=== PATIENT | female | born 2000 | race Caucasian/White ===

== ENCOUNTER 2020-09-01 15:00 | Outpatient (RCR) | payer OTHER, SELFPAY | END 2020-09-11 23:55 | disposition home or self-care (01) | LOC: HO.PAOS 15:00 | PROVIDERS: Visit Provider Counselor Mental Health | DX: F91.3 Oppositional defiant disorder (principal); F60.3 Borderline personality disorder | CPT/HCPCS: 90832; 90834 ==

== ENCOUNTER 2021-04-27 19:41 | Emergency (ER) | payer OTHER, SELFPAY ==
[2021-04-27 19:47] VITALS: BP 127/69; PULSE 97; RESP 15; TEMP 37; O2SAT 100; BMI 18.3
--- NOTE | 2021-04-27 19:57 | ED_ITS ---
HPI - Psych General Chief Complaint: Psychiatric Symptoms Stated Complaint: crisis Time Seen by Provider: 04/27/21 19:50 Source: patient and EMS Mode of arrival: EMS Limitations: no limitations History of Present Illness HPI Narrative: 20 y/o female with history of anxiety, previous cutting behaviors who presents to the ER from work via EMS with anxiety attack and self-inflicted cuts to her right thigh that she gave herself with a gill box operator in the bathroom at work. She has increased stress at work and does better when I work with a partner. Her housing property manager told her she needed to get a doctor's note stating this. She lied to her manger and told her she had an appointment today. She had an anxiety attack, went into the bathroom and cut the lateral portion of her right thigh superficially with a gill box operator. She reports she wanted to feel pain in the moment. She denies suicide attempt. complaint: anxiety Onset (ago): hour(s) Duration: intermittent History of same: Yes Relieving factors: therapy Exacerbating factors: other (stress at work) Context: significant life stressor Associated symptoms: denies other symptoms Treatments prior to arrival: none If self harm: self-inflicted trauma Related Data Previous Rx's Medication Instructions Recorded hydroxyzine HCl 25 mg PO TID PRN #10 tab 04/27/21 Allergies Allergy/AdvReac Type Severity Reaction Status Date / Time No Known Allergies Allergy Unverified 06/19/20 16:55 [No Known Allergies*] Review of Systems Review of Systems: Constitutional: No Fever, No Chills ENT/Mouth: No sore throat, No Rhinorrhea, No Swallowing Difficulty Cardiovascular: No Chest Pain, No SOB Respiratory: No Cough, No Sputum, No Wheezing, No dyspnea Gastrointestinal: No Nausea, No Vomiting, No Diarrhea, No abdominal Pain Musculoskeletal: No joint pain, No Myalgias Skin: + Skin Lesions, No rash Neuro: No Weakness, No Numbness, No Dizziness, No Headache Psych: + Anxiety/Panic, No Depression, No VH, No AH, No SI Heme/Lymph: No Bruising, No Lymphadenopathy PMFSH Past Medical History Medical History (Updated 04/27/21 @ 21:49 by ESTIVEN Seth) Anxiety Social History Social History Advance Directives: No Advance Directives Information Provided: Yes Healthcare Proxy: No Guardian: No Patient : No Physical Exam Vital Signs: Vital Signs: Last Vital Signs Temp 98.6 F 04/27/21 19:47 Pulse 97 04/27/21 19:47 Resp 15 04/27/21 19:47 BP 127/69 04/27/21 19:47 Pulse Ox 100 04/27/21 19:47 Body Mass Index 18.3 Appearance: Alert. Oriented X3. No acute distress. Eyes: Pupils equal, round and reactive to light. ENT: Pharynx normal. Neck: Normal inspection. Neck supple. CVS: Normal heart rate and rhythm. Pulses normal. Respiratory: No respiratory distress. Breath sounds normal. Abdomen: Soft and nontender. +BS x4 Skin: Skin warm and dry. Normal skin color. Normal skin turgor. No rashes. Extremities: No lower extremity edema. Right lateral thigh with multiple superficial abrasions about 8 cm in length, no active bleeding, very superficial Neuro: Oriented X 3. No motor deficit. No sensory deficit. Course Course Course Narrative: 20 y/o female with history of anxiety and cutting who presents with panic attack and superficial self-inflicted abrasions to right thigh. Anxiety worse without seeing her therapist. CARE team involved who is reaching out to family and her therapist. Reevaluation(s) Reevaluation #1: Utox negative. Physician observation started at 9pm. Patient placed in physician observation because patient is awaiting CARE evaluation for the possible need of inpatient psych admission. At the time observation was started patient's vital signs were stable. Patient is alert and oriented. Neuro exam is non-focal. CV: RRR and lungs are clear. Will continue to monitor. Reevaluation #2: Patient seen by CARE team - therapist contacted and patient will follow up with them. She is stable for d/c home with trial of PRN hydroxyzine. Patient is not suicidal or homicidal. [facility] - Psych Lab Data Labs: Lab Results 04/27/21 04/27/21 04/27/21 Range/Units 20:07 20:07 20:07 Urine Color YELLOW Urine Appearance CLEAR Urine pH 6.0 (5.0-8.0) Ur Specific Odonnell 1.010 (1.005-1.025) Urine Protein NEG (NEG-TRACE) MG/DL Urine Glucose (UA) NEG (NEG) MG/DL Urine Ketones NEG (NEG) MG/DL Urine Blood 2+ H (NEG) Urine Nitrite NEG (NEG) Ur Leukocyte Esterase NEG (NEG) Urine RBC 0-2 (0) /HPF Urine WBC 0-2 (0-4) /HPF Ur Squamous Epith Cells TRACE /LPF Urine Bacteria 2+ /LPF Urine Mucus TRACE /LPF Urine Opiates Screen Not Detected (Not Detect) Ur Barbiturates Screen Not Detected (Not Detect) Ur Phencyclidine Scrn Not Detected (Not Detect) Ur Amphetamines Screen Not Detected (Not Detect) U Benzodiazepines Scrn Not Detected (Not Detect) Urine Cocaine Screen Not Detected (Not Detect) U Marijuana (THC) Screen Not Detected (Not Detect) COVID-19 (TOYA) Negative (Negative) COVID-19 Clin Com See Note Critical Care Time Critical Care Time Critical Care Time: No Discharge Plan Discharge Clinical Impression: Anxiety Patient Disposition: Home, Self-Care Instructions: Anxiety (ED) Additional Instructions: Follow up with your Therapist FILIPE. Take the prescribed medication as directed. If you develop new or worsening symptoms call 911 or come back to the ER for further evaluation. Prescriptions: New hydroxyzine HCl 25 mg tablet 25 mg PO TID PRN (Reason: anxiety) Qty: 10 RF: 0 Interventions: ED Discharge Assessment Last Done: 04/27/21 22:25 Discharge Date/Time: 04/27/21 22:26
[2021-04-27 20:25] LABS: Glucose Urine UA NEG (NEG); Leukocyte Esterase Urine NEG (NEG); Nitrite Urine NEG (NEG); Urine Blood 2+ (NEG); Urine Ketones NEG (NEG); Urine Protein NEG (NEG-TRACE)
[2021-04-27 20:30] LABS: COVID-19 Test Negative (Negative)
[2021-04-27 20:31] LABS: Appearance Urine CLEAR; Color Urine YELLOW
[2021-04-27 20:37] LABS: Amphetamine Screen Urine Not Detected (Not Detect); Barbiturates, Urine Not Detected (Not Detect); Benzodiazepines Screen Urine Not Detected (Not Detect); Cannabinoid Screen Urine Not Detected (Not Detect); Cocaine Screen Urine Not Detected (Not Detect); Opiate Screen Urine Not Detected (Not Detect); Phencyclidine Screen Urine Not Detected (Not Detect)
[2021-04-27 20:51] LABS: RBC Urine 0-2 /HPF (0); Squamous Epithelial Cell Urine TRACE /LPF; WBC Urine 0-2 /HPF (0-4)
[2021-04-27 20:52] LABS: Bacteria Urine 2+ /LPF; Mucus Urine TRACE /LPF
== END 2021-04-27 22:26 | disposition home or self-care (01) ==
PROVIDERS: Physician Assistant; Emergency Provider Emergency Medicine; PCP Pediatrics
DX: F41.9 Anxiety disorder, unspecified (principal); S70.311A Abrasion, right thigh, initial encounter; X78.8XXA Intentional self-harm by other sharp object, initial encounter; Y93.9 Activity, unspecified; Y92.9 Unspecified place or not applicable; Y99.9 Unspecified external cause status; Z20.822 Contact with and (suspected) exposure to COVID-19; Z56.6 Other physical and mental strain related to work; Z91.5 Personal history of self-harm
CPT/HCPCS: 36415; 80307; 81001; 87635; 99282; 99283

== ENCOUNTER 2021-12-17 21:09 | Emergency (ER) | payer OTHER, SELFPAY | END 2021-12-17 22:21 | disposition left against medical advice (07) | LOC: HO.ED 22:19 | PROVIDERS: Emergency Provider Emergency Medicine | DX: R30.0 Dysuria (principal) ==

== ENCOUNTER 2023-06-01 02:54 | Emergency (ER) | payer OTHER, SELFPAY ==
[2023-06-01 03:03] VITALS: BP 132/74; PULSE 142; RESP 23; TEMP 37; O2SAT 96; BMI 27.0
[2023-06-01 03:42] VITALS: BP 132/74; PULSE 110; RESP 18; TEMP 37; O2SAT 94
[2023-06-01 04:12] LABS: Amphetamine Screen Urine Not Detected (Not Detect); Barbiturates, Urine Not Detected (Not Detect); Benzodiazepines Screen Urine Not Detected (Not Detect); Cannabinoid Screen Urine Not Detected (Not Detect); Cocaine Screen Urine POSITIVE (Not Detect); Fentanyl, urine Not Detected (Not Detect); Opiate Screen Urine Not Detected (Not Detect); Phencyclidine Screen Urine Not Detected (Not Detect)
[2023-06-01 04:17] LABS: Ethanol 229 mg/dL
--- NOTE | 2023-06-01 04:31 | ED.ALCOHOL ---
HPI - Alcohol General Chief Complaint: ETOH/Substance Use Stated Complaint: ETOH Time Seen by Provider: 06/01/23 04:20 Source: EMS and police Mode of arrival: EMS Limitations: other History of Present Illness HPI narrative: Patient comes to the emergency room [facility] ambulance intoxicated. Police department is present. They state that the patient called from a bar in [place] asking for a ride home. They did take her her home. Then, P delays department states that after dropping her off, patient called again, patient screaming, admits to using alcohol and cocaine. Patient brought to the emergency room. Patient denies SI or HI, patient yelling, stating that she wants her that to pick her up. Patient is very intoxicated Related Data Previous Rx's Medication Instructions Recorded hydroxyzine HCl 25 mg tablet 25 mg PO TID PRN anxiety #10 tabs 04/27/21 Allergies Allergy/AdvReac Type Severity Reaction Status Date / Time No Known Allergies Allergy Unverified 06/19/20 16:55 [No Known Allergies*] Review of Systems Review of Systems: Yes Other (Patient is too intoxicated) COUNT INCLUDES THE [facility] Past Medical History Medical History Anxiety Social History Social History Smoked in Last 30 Days: No Substance Use Type: Crack/Cocaine Physical Exam ED Vital Signs: Vital Signs - 24 hr 06/01/23 03:03 06/01/23 03:42 Temperature 98.6 F 98.6 F Pulse Rate 142 H 110 H Respiratory Rate 23 H 18 Blood Pressure 132/74 132/74 Pulse Oximetry 96 94 Oxygen Delivery Method Room Air Room Air BMI result Body Mass Index 27.0 Const Other: Appearance: Alert. Intoxicated Eyes: Pupils equal, round and reactive to light. ENT: Pharynx normal. Neck: Normal inspection. Neck supple. No lymph nodes noted. No crepitus CVS: Normal heart rate and rhythm. Pulses normal. Normal S1 and S2 Respiratory: No respiratory distress. Breath sounds normal. No Wheezing. No rales Abdomen: Soft and nontender. No rigidity. No distention. Skin: Skin warm and dry. Normal skin color. Normal skin turgor. Extremities: No lower extremity edema. No Lacerations. No Rash Neuro: Intoxicated No motor deficit. No sensory deficit. Moving all extremities. No slurred speech. CN 2 through 12 grossly intact Psych: Agitated, anxious Course Course Course Narrative: -patient is very intoxicated -patient eventually fell asleep, vitals stable -plan: Metabolize to freedom and discharged home. Medical Decision Making Lab Data Labs: Lab Results 06/01/23 06/01/23 Range/Units 03:51 03:55 Urine Opiates Screen Not Detected (Not Detect) Urine Fentanyl Screen Not Detected (Not Detect) Ur Barbiturates Screen Not Detected (Not Detect) Ur Phencyclidine Scrn Not Detected (Not Detect) Ur Amphetamines Screen Not Detected (Not Detect) U Benzodiazepines Scrn Not Detected (Not Detect) Urine Cocaine Screen POSITIVE H (Not Detect) U Marijuana (THC) Screen Not Detected (Not Detect) Ethyl Alcohol 229 mg/dL Discharge Plan Discharge Clinical Impression: Alcoholic intoxication Patient Disposition: Still a Patient Prescriptions: No Action hydroxyzine HCl 25 mg tablet 25 mg PO TID PRN (Reason: anxiety) Qty: 10 0RF
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
[2023-06-01 06:26] VITALS: BP 100/56; PULSE 94; RESP 15; O2SAT 99
[2023-06-01 09:07] VITALS: BP 102/56; PULSE 98; RESP 18; O2SAT 98
[2023-06-01 10:34] VITALS: BP 93/57; PULSE 98; RESP 18; TEMP 528.3; TEMP 983; O2SAT 95
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
== END 2023-06-01 12:16 | disposition home or self-care (01) ==
PROVIDERS: Emergency Provider Emergency Medicine
DX: F10.220 Alcohol dependence with intoxication, uncomplicated (principal); Y90.7 Blood alcohol level of 200-239 mg/100 ml; F41.9 Anxiety disorder, unspecified; Z79.899 Other long term (current) drug therapy
CPT/HCPCS: 36415; 80307; 99284

== ENCOUNTER 2023-10-23 22:25 | Emergency (ER) | payer OTHER, SELFPAY ==
[2023-10-23 23:13] VITALS: BP 125/68; PULSE 94; RESP 18; TEMP 36.5; O2SAT 96; BMI 26.8
[2023-10-23 23:51] VITALS: BP 118/77; PULSE 98; RESP 17; TEMP 36.6; O2SAT 97
--- NOTE | 2023-10-24 00:10 | ED.GENADULT ---
[facility] - General Adult General Chief complaint: General Medical Stated complaint: Nose bleeding today Time Seen by Provider: 10/23/23 23:58 Source: patient Mode of arrival: ambulatory History of Present Illness HPI narrative: 23-year-old female not on any chronic anticoagulation presents with noticing that she had a bloody nose this morning when she awoke from sleep and states that throughout the day she is noticed blood on the toilet paper when she has clean her nose. Related Data Previous Rx's Medication Instructions Recorded hydroxyzine HCl 25 mg tablet 25 mg PO TID PRN anxiety #10 tabs 04/27/21 Allergies Allergy/AdvReac Type Severity Reaction Status Date / Time No Known Allergies Allergy Unverified 06/19/20 16:55 [No Known Allergies*] Review of Systems Review of Systems: Pertinent positives and negatives as stated in [facility] Past Medical History Source: nursing notes reviewed Onset Date is defined in the Problem List Problems that require an onset date and time if occurred within 24 hrs of arrival to the ED Aortic Dissection and Rupture; Neurologic impairment; Cardiopulmonary Arrest; Endotracheal Intubation; Insertion or Replacement of Mechanical Circulatory Assist Device Medical History Anxiety Social History Social History Substance Use Type: Crack/Cocaine Advance Directives: No Advance Directives Information Provided: Yes Physical Exam ED Vital Signs: Vital Signs - 24 hr 10/23/23 23:13 10/23/23 23:51 Temperature 97.7 F 97.8 F Pulse Rate 94 98 Respiratory Rate 18 17 Blood Pressure 125/68 118/77 Pulse Oximetry 96 97 Oxygen Delivery Method Room Air Room Air BMI result Body Mass Index 26.8 VITAL SIGNS: Reviewed. GENERAL: Well developed, well nourished, in no acute distress. HEAD: Normocephalic/atraumatic EYES: PERRLA, EOMI EARS: Ext canals without abnormality NOSE: Nares patent bilateral, no obvious bleeding noted, no lesions noted OROPHARYNX: no oral lesions noted, posterior pharynx clear NECK: Supple, no adenopathy LUNGS: Normal breath sounds. No adventitious sounds or accessory muscle use. SpO2<97> CARDIOVASCULAR: Regular rate and rhythm without noted murmurs ABDOMEN: Soft, non-tender, non-distended with bowel sounds. MUSCULOSKELETAL: No tenderness, deformities, or effusions noted on gross inspection. EXTREMITIES: No cyanosis, clubbing or edema. SKIN: Inspection of the skin reveals no rashes NEUROLOGIC: Alert and oriented x 4. Strength and sensation to light touch were grossly intact x 4. Medical Decision Making Medical Decision Making MDM Narrative: 23-year-old female with history and clinical presentation consistent with atraumatic epistaxis likely secondary to current weather conditions and dryness, no obvious bleeding at this time with patent nares. She is otherwise discharged with instructions on how to avoid this in the future. Differential Diagnosis Differential Diagnoses: The differential diagnosis associated with the presentation includes Please see the discussion above Admission/Observation Consideration of admission/observation: Escalation of care including admission/observation considered Please see the discussion above Discharge Plan Discharge Clinical Impression: Epistaxis Patient Disposition: Home, Self-Care Instructions: Nosebleed (ED) Additional Instructions: 1. Recommend [id number] saline spray, 1 brand is called ocean spray, apply to nasal passages 3 to 4 times a day to help maintain moist membranes. 2. Recommend bedside cool mist humidifier for additional moisture control. 3. Do not put anything up your nose to include fingers. Return to the ER for any worsening symptoms. Prescriptions: No Action hydroxyzine HCl 25 mg tablet 25 mg PO TID PRN (Reason: anxiety) Qty: 10 0RF
== END 2023-10-24 00:23 | disposition home or self-care (01) ==
PROVIDERS: Emergency Provider Student in an Organized Health Care Education/Training Program
DX: R04.0 Epistaxis (principal)
CPT/HCPCS: 99282; 99284

== ENCOUNTER 2025-04-26 17:14 | Emergency (ER) | payer MEDICAID, SELFPAY ==
--- NOTE | ~2025-04-26 | XR_ITS ---
CLINICAL HISTORY: trauma 5 view left knee Comparison: None provided Findings: No fractures or dislocations. No joint effusion. No radiopaque foreign body. IMPRESSION: 1. No acute findings. This document has been electronically signed by: Jerry Jansen MD on 04/26/2025 18:12:28
[2025-04-26 17:29] VITALS: BP 116/69; PULSE 105; RESP 17; TEMP 36.2; O2SAT 96; BMI 26.3
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
[2025-04-26 18:41] VITALS: BP 116/69; PULSE 105; RESP 17; TEMP 36.2; O2SAT 96
--- OUTSIDE RECORDS SUMMARY | 2025-04-26 18:41 | XMS_ITS | Clinical Summary ---
Author Organization [facility] Address [address] [place] [id number] Phone Care Team Providers Care Airport Shuttle Driver Name Role Phone Javierfavio Maribell ROWAN Primary Care Provider [phone] Allergies Active Allergy Reactions Criticality Noted Date Comments Amoxicillin 09/04/2021 Hives on fingers Medications buPROPion XL (Wellbutrin XL) 150 MG 24 hr tabletIndication s:Depression, unspecified depression type Take 1 tablet (150 mg total) by mouth daily. 90 tablet 05/20/2023 Active hydrOXYzine 25 MG tabletIndication s:Anxiety disorder, unspecified type Take 1 tablet (25 mg total) by mouth every evening. 30 tablet 1 05/31/2023 Active Active Problems Problem Noted Date Diagnosed Date Chronic midline low back pain without sciatica 0 05/31/2023 Assessment & Plan (05/31/2023 1:20 PM EDT): Concern for persistent lower back discomfort. No radicular pain. Will obtain x- ray to check for a bone issue of the spine. If no concerns raised then would refer to physical therapy to help with this. 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 She does not want to take pillls. She wants the implant. We will refer her to obgyn. Anxiety disorder 05/25/2021 Assessment & Plan (05/31/2023 1:17 PM EDT): Reinforced importance of taking bupropion XL 150mg daily and then will add hydroxyzine in the evening to help with anxiety symptoms currently. Follow up in 2-3 weeks. Assessment & Plan (10/25/2022 2:57 PM EST): Overall doing well No SI risk Speaking to therapist weekly I do recommend she resume medication Sertraline refilled Will provide assistance to aid in transportation Self-injurious behavior 05/25/2021 Menorrhagia with irregular cycle 02/27/2019 Overview (02/27/2019): 01/2019 - Long periods of vaginal bleeding. Implanon placed 2-3 years ago. Assessment & Plan (02/27/2019 2:55 PM EDT): Recommended going back to clinic that placed implanon. Otherwise if unable to return to that clinic then call new Compliance Consultant office to evaluate and likely take out implanon. Seasonal allergic rhinitis 02/27/2019 Assessment & Plan (02/16/2021 1:29 PM EDT): Differential includes AOM, pneumonia, coronavirus, viral URI, allergy rhinitis, strep throat. [facility] strep swab negative. No signs on exam of AOM or pneumonia. COVID testing ([facility]) was negative. Most likely diagnosis is allergic rhinitis. Discussed supportive therapy. Call back for ear pain, persistent fever, trouble breathing or new symptom. Will treat with cetirizine to help with allergy congestion. Assessment & Plan (02/27/2019 2:56 PM EDT): Differential includes AOM, pneumonia, viral URI, strep throat, allergic rhinitis. Rapid strep test negative, will send culture. No signs of AOM or pneumonia. Most likely diagnosis is allergic rhinitis and irritation of throat. Discussed supportive therapy with fluids and cetirizine/loratadine. Return for ear pain, persistent fever, trouble breathing or new symptom. Extrinsic asthma 12/11/2016 Overview (02/27/2019): Exercise-induced asthma (493.00) Onset: 12/11/2016 Added by: Cassandra Webb Depression 08/16/2016 Overview (02/27/2019): Anxiety with depression (300.4) Onset: 08/16/2016 Added by: Cassandra Webb Assessment & Plan (05/31/2023 1:17 PM EDT): Reinforced importance of taking bupropion XL 150mg daily and then will add hydroxyzine in the evening to help with anxiety symptoms currently. Follow up in 2-3 weeks. Assessment & Plan (05/20/2023 10:38 AM EDT): We are going to encourage her to take the wellbutrin. I can send the script again. We can see her back at her [facility] in Oct. Assessment & Plan (09/04/2021 9:33 AM EST): She is depressed, but resistant to medications. She says her step dad will pay for the co pay for therapy. She wants to go in person. She has a copay of $30. Her step dad gave her $40 today. I suggest to save that money for the appointment. Assessment & Plan (05/14/2019 5:16 PM EDT): Catherine has disorder at home with her step father and step sister. She threatens suicide and states she is depressed, but it is difficult to determine her insight to her situations. When discussing suicide she says she wont do it, but that she could. There is a gun in the basement of her grandfather's house next door, but that at home she could use a knife and kill herself slowly by bleeding out. But she says she wont do that. She has a diagnosis of disability in the past, but I cannot find in her old records more than the diagnosis of ADHD. I suspect a learning disability but otherwise have no other explanations for her difficulties. I have suggested to go to the therapist at the school. Catherine states that father does not want her diagnosed with depression or on medication. Catherine says she will go live with her biological father when he moves here from [place]. Unknown when that would be. We will contact the school and see what we can get for her in terms of mental health support and some explanations for her disabilities. Other specific developmental learning difficulti es 08/16/2016 Overview (02/27/2019): Other specific learning difficulties (315.2) Onset: 08/16/2016 Added by: Cassandra Webb Scoliosis (and kyphoscoliosis), idiopathic 08/16 Overview (01/28/2023): Scoliosis (737.30) Onset: 08/16/2016 Added by: Cassandra Webb Diagnosis load January 2023 Resolved Problems Problem Noted Date Diagnosed Date Resolved Date Left foot pain 04/26/2023 05/20/2023 Assessment & Plan (04/26/2023 1:18 PM EDT): Given severity of pain with weight bearing and light palpation, I recommend she be seen by [facility] urgent care clinic. If unable to be seen, can call our office for an order for an x ray. Influenza vaccine refused 09/04/2021 Impetigo 02/16/2021 05/20/2023 Assessment & Plan (02/16/2021 1:29 PM EDT): Rash under nose consistent with impetigo. Will treat with mupirocin. Immunizations Immunization Administration Dates Next Due DTaP 5 06/13/2006, 2,01/25/2001,12/14,2000 HPV Vaccine 9 Valent 07/31/2015 HPV, Quadrivalent 07/30/2014,2013 Hep A, ped/adol 04/30/2019,08/16/2017 Hep B, ped/adol 01/10/2002,01/25/2001,2000 Hib (PRP-T) 01/10/2002, 1,2000,10/31 IPV 06/13/2006, 2,2000,10/31 Influenza, injectable, quadr ivalent, preservative free 08/25/2020,08/16/2017,08/16/2016 Influenza, injectable, triva lent, preservative free 2013 Influenza, intranasal, trivalent 07/30/2014 MMR 06/13/2006,08/21/2001 Meningococcal Conj (Menactra) MCV4P 08/16/2016,0 06/13/2012 Pneumococcal Conjugate 01/25/2001,2000, Tdap 06/13/2012 Varicella 06/13/2012,08/21/2001 Family History Medical History Relation Name Comments No Known Problems Brother Will No Known Problems Father Janette No Known Problems Sister 1 Radha No Known Problems Sister 2 Linnea Relation Name Status Comments Brother Will Alive Father Janette Alive Mother Martha Sister 1 Radha Alive Sister 2 Linnea Alive Social History Tobacco Use Types Packs/Day Years Used Date Smoking Tobacco: Never Smokeless Tobacco: Never Comments:Never Smoker Alcohol Use Standard Drinks/Week Comments Never 0 (1 standard drink = 0.6 oz pur e alcohol) Hunger/Food Answer Date Recorded In the last 12 months, did y ou or your family ever eat less than you felt you should because there wasn't enough money for food? No 10/25/2022 Stable Housing Answer Date Recorded Are you worried that in the next 2 months you may not have stable housing? No 10/25/2022 Transportation Concerns Answer Date Rec orded In the last 12 months, have you or your family ever had to go without healthcare because you didn't have a way to get there? No 10/25/2022 Hazards in Home Answer Date Recorded Think about the place you li ve. Do you have problems with any of the following? Pests (mice or roaches), mold, no/not working smoke detectors, water leaks, no window guards. No 2022 Financing Utilities Answer Date Recorde d In the last 12 months, has t he electric, gas, oil, or water company threatened to shut off your services in your home? No 10/25/2022 Safety at Home Answer Date Recorded Are you or your family worried about feeling saf e in your home? No 10/25/2022 Outside Support Answer Date Recorded Do you feel that you need mo re support from other people or programs to help you care for yourself or your family? No 10/25/2022 Understanding Health Concerns Answer Da te Recorded Do you need help understandi ng your or your child's healthcare needs (diagnosis, medications, plan, etc.)? No 10/25/2022 Financing Health Concerns Answer Date R ecorded In the last 12 months, was t here a time when your child needed to see a doctor or get medications or supplies but could not because of cost? No 10/25/2022 Missing School or Work Answer Date Adi rded Did you or your child miss s chool or work because of a health problem that could have been avoided? No 10/25/2022 Comments No Sex and Gender Information Value Date Recorded Sex Assigned at Not on file Legal Sex Female 6:39 PM EDT Gender Identity Not on file Sexual Orientation Straight 08/25/2020 11 :47 AM EST Last Filed Vital Signs Vital Sign Reading Time Taken Comments Blood Pressure 114/62 05/20/2023 10:13 AM EDT Pulse 108 05/20/2023 10:13 AM EDT Temperature 36.1 C (97 F) 05/31/2023 9:56 AM EDT Respiratory Rate - - Oxygen Saturation - - Inhaled Oxygen Concentration - - Weight 67.4 kg (148 lb 8 oz) 05/31/2023 9:56 AM EDT Height 155.5 cm (5' 1.22 ) 10/25/2022 1:58 PM ES T Body Mass Index 27.86 10/25/2022 1:58 PM EST Plan of Treatment Health Maintenance Due Date Last Done Comments DTaP,Tdap,and Td Vaccines (7 - Td or Tdap) 06/13/2022 06/13/2012, 06/13/2006, 03/13/2002, Additional history exists COVID-19 Vaccine ( season) 2024 02/24/2021, 01/27/2021 Influenza Vaccines (#1) 2025 08/25/20 20, 08/16/2017, 08/16/2016, Additional history exists Pneumococcal Vaccine Aged Out 01/25/2001, 2000, 2000 No longer eligible based on patient's age to complete this topic HIB Vaccines Completed 01/10/2002, 01/02, 2000, Additional history exists Hepatitis B Vaccines Completed 01/10/2002, 01/25/2001, 2000 IPV Vaccines Completed 06/13/2006, 03/03, 2000, Additional history exists MMR Vaccines Completed 06/13/2006, 08/21/2001 Varicella Vaccines Completed 06/13/2012, 08/21/2001 HPV Vaccines Completed 07/31/2015, 07/04, 2013 Meningococcal Vaccine Completed 08/16/2016, 012 Hepatitis A Vaccines Completed 04/30/2019, 08/16/20 17 Men B Vaccine Aged Out No longer elig ible based on patient's age to complete this topic Goals Goal Patient Goal Type Associated Problems Recent Progress Patient-Stated? Author Not allowing anxiety and fear to impede on visiting sister in [place] Care Plan Increased symptoms of anxiety No Carley Salcido LICSW Note: Possible barriers: difficulty taking medications, history of negative experiences associated with visiting [place]. Procedures * Due to [place] law, this organization might not be sharing sensitive test results. Procedure Name Priority Date/Time Associated Diagnosis Comments CHLAMYDIA GC AMP PROBE Routine 10/25/2022 2:17 PM EST Encounter for screening examination for sexually transmitted disease from Last 3 Months or Most Recently Relevant to Health Maintenance Results * Due to [place] law, this organization might not be sharing sensitive test results. * Chlamydia and Gonorrhoea, Amplified (Vagina) (10/25/2022 2:17 PM EST) Chlamydia Trachomatis, Amplified NEGATIVE (NEG) [facility] Comment: No Chlamydia Trachomatis RNA detected in this patient's sample (REFERENCE RANGE/NORMAL VALUE: NOT DETECTED) Note: This test uses dimension specification inspector- mediated amplification method to detect rRNA from C. Trachomatis N.GONORRHOEAE AMP PROBE NEGATIVE (NEG) [facility] Comment: No Neisseria Gonorrhoeae RNA detected in this patient's sample (REFERENCE RANGE/NORMAL VALUE: NOT DETECTED) NOTE: This test uses dimension specification inspector-mediated amplification method to detect rRNA from N.Gonorrhoeae. A negative result does not preclude infection. In the case of a negative urine result, testing of an endocervical(female) or urethral (male) specimen is recommended if there is high clinical suspicion of infection. Due to very high sensitivity of Nucleic Acid Amplification Test, false positive results may occur. Therefore, specimen handling is extremely important. In patients in whom the disease is unlikely, additional sample for testing should be considered after an initial positive result. The performance characteristics of this test have not been evaluated in children. The Aptima Combo2 assay is not intended for the evaluation of suspected sexual abuse or for other medico-legal indications. The ordering provider should assess if the patient had consensual sex without risk of sexual abuse. Consult the [facility] if needed. Contact phone number . Therapeutic failure or success cannot be determined with the Aptima Combo2 assay since nucleic acid may persist following appropriate antimicrobial therapy. The Centers for Disease Control and Prevention (CDC) recommends confirmatory retesting using culture or a different nucleic acid amplification test when positive results occur, if indicated. CHLAM/GC AMP PROBE SPEC TYPE VAGINAL SPECIMEN [facility] Comment: Testing performed or reported by [facility], [facility], a Service of [facility], [address] [place] [id number] Patrick Parr MD, Digital Designer [facility]# [id number] Swab (Vagina) 10/25/2022 2:1 7 PM EST 10/26/2022 9:44 AM EST Maribell Chase NP LAB MICROBIOLOGY - GENERAL ORDER CY Final Result [facility] from Last 3 Months or Most Recently Relevant to Health Maintenance Additional Health Concerns Active Problems Noted Date Diagnosed Date Increased symptoms of anxiety 08/11/2023 Note: Patient reported increased anxiety when visiting her sister in [place], due to history of issues that occurred during visits: injuring herself, getting sick (strep throat and SOB). Upon return to [place], issues have resolved. Insurance UMR UMR Care Teams Airport Shuttle Driver Relationship Specialty Start Date End Date Maribell Chase NP [address] [place] [address] PCP - General Pediatrics 01/02/21
--- OUTSIDE RECORDS SUMMARY | 2025-04-26 18:41 | XMS_ITS | Clinical Summary ---
Author Organization [employer] Address [address] [place] [address] Care Team Providers Care Quarry Plug And Feather Driller Name Role Phone Unavailable Primary Care Provider Unavailabl e Social History Tobacco Use Types Packs/Day Years Used Date Smoking Tobacco: Never Assessed Comments Unknown Sex and Gender Information Value Date Recorded Sex Assigned at Female 08/02/2022 10:38 AM EDT Legal Sex Female 10:38 AM EDT Gender Identity Female 08/02/2022 10:38 AM EDT Sexual Orientation Don't know 08/02/2022 10 :38 AM EDT Plan of Treatment Health Maintenance Due Date Last Done Comments Depression Screening 2000 HIV Screening 2000 Disability Screening 2000 Alcohol/Substance Use Screening 2012 Tobacco Screening 2012 Family Planning (PISQ) 2015 HPV Vaccines (1 - 3-dose series) 2015 Hepatitis C Screening 2018 DTaP/Tdap/Td Vaccines (1 - Tdap) 2019 Hepatitis B Vaccines (1 of 3 - 19+ 3-dose series) 2019 Pap Smear 2021 COVID-19 Vaccine (3 - 2023-2 5 season) 2024 02/24/2021, 01/27/2021 Influenza Vaccine (#1) 2025 Zoster Vaccines (1 of 2) 2050 RSV Patients and Patients Aged 60 years or older (1 - 1-dose 75+ series) 2075 HIB Vaccines Aged Out No longer eligi ble based on patient's age to complete this topic Hepatitis A Vaccines Aged Out No long er eligible based on patient's age to complete this topic IPV Vaccines Aged Out No longer eligi ble based on patient's age to complete this topic Meningococcal B Vaccine Aged Out No l onger eligible based on patient's age to complete this topic Meningococcal Vaccine Aged Out No michi lety eligible based on patient's age to complete this topic Pneumococcal Vaccine: Pediatrics (0 to 5 Years) and At-Risk Patients (6 to 49) Years Aged Out No longer eligible b ased on patient's age to complete this topic RSV under 20 months Aged Out No longe r eligible based on patient's age to complete this topic Rotavirus Vaccines Aged Out No longer eligible based on patient's age to complete this topic
== END 2025-04-26 18:42 | disposition home or self-care (01) ==
PROVIDERS: Emergency Provider Internal Medicine
DX: S80.02XA Contusion of left knee, initial encounter (principal); W01.0XXA Fall on same level from slipping, tripping and stumbling without subsequent striking against object, initial encounter; M25.562 Pain in left knee; Y93.02 Activity, running; Y92.481 Parking lot as the place of occurrence of the external cause; Y99.9 Unspecified external cause status
CPT/HCPCS: 73564; 99282; 99283

== ENCOUNTER → 2025-04-26 17:30 | Outpatient (BNV) | payer MEDICAID, SELFPAY | PROVIDERS: Emergency Provider Internal Medicine; Visit Provider Radiology Diagnostic Radiology | DX: M25.562 Pain in left knee (principal) | CPT/HCPCS: 73564 ==